=== PATIENT | male | born 1945 | race Caucasian/White ===

== ENCOUNTER 2025-04-29 19:08 | Inpatient (IN) | payer MEDICARE ==
[2025-04-29 19:47] LABS: ALBUMIN 3.28 g/dL (3.40-5.00); BILIRUBIN TOTAL 0.6 mg/dL (0.2-1.0); CARBON DIOXIDE,CO2 24.3 mmol/L (21.0-32.0); CREATININE 2.36 mg/dL (0.51-1.17); PROTEIN TOTAL,TP 7.5 g/dL (6.4-8.2)
[2025-04-29 19:50] LABS: HEMATOCRIT 40.2 % (40.0-52.0); HEMOGLOBIN 12.7 g/dL (13.0-17.0); MEAN CORPUSCULAR HEMOGLOBIN 30.4 pg (27.0-31.0); MEAN CORPUSCULAR HGB CONC 31.6 g/dL (32.0-36.0); MEAN CORPUSCULAR VOLUME 96.2 fL (82.0-92.0); PLATELET COUNT,PLT 347 10^3/uL (150-400); RED BLOOD CELL COUNT 4.18 10^6/uL (4.50-6.00); RED CELL DISTRIBUTION WIDTH 15.2 % (11.5-14.5)
[2025-04-29 19:55] LABS: ANION GAP 14.2 mmol/L (5-15); POTASSIUM,K 6.5 mmol/L (3.5-5.1)
[2025-04-29 19:57] LABS: EST CRCL DRUG DOSING (CG) 24.12 mL/min; WHITE BLOOD CELL COUNT,WBC 36.91 10^3/uL (5.00-10.00)
[2025-04-29 20:11] LABS: LYMPHOCYTES PERCENT MAN 61 % (20-40); MONOCYTES PERCENT MAN 4 % (2-8); SEG NEUTROPHILS PERCENT MAN 35 % (50-70)
[2025-04-29 20:12] LABS: REACTIVE LYMPHOCYTES FEW
[2025-04-29] MEDS: Sodium Chloride 0.9% 1,000 ML IV ONE (21:58)
[2025-04-29] MEDS ORDERED: Sodium Chloride 0.9% 1,000 ML IV SCH (22:00)
[2025-04-29 22:25] LABS: APPEARANCE,URINE CLEAR (CLEAR); BILIRUBIN,URINE SMALL (NEGATIVE); COLOR,URINE YELLOW (YELLOW); GLUCOSE,URINE NEGATIVE (NEGATIVE); KETONES,URINE TRACE mg/dL (NEGATIVE); LEUKOCYTE ESTERASE,URINE NEGATIVE (NEGATIVE); NITRITE,URINE NEGATIVE (NEGATIVE); PH,URINE 5.5 (5.0-9.0); PROTEIN,URINE NEGATIVE (NEGATIVE); UROBILINOGEN,URINE 0.2 E.U./dL (0.2-1.0)
[2025-04-29 22:33] LABS: OCCULT BLOOD,URINE SMALL (NEGATIVE)
[2025-04-29 22:34] LABS: BACTERIA,URINE RARE /HPF (NONE TO FEW); EPITHELIAL CELLS,URINE RARE /LPF; HYALINE CASTS,URINE FEW; WBC,URINE 0-5 /HPF (0-5)
[2025-04-29] MEDS ORDERED: Ondansetron 4 MG/2 ML SDV IV PRN (23:59)
[2025-04-29] MEDS ORDERED: Albuterol/Ipratropium 3.0-0.5 MG/3 ML Neb Soln NEB PRN (23:59)
[2025-04-29] MEDS ORDERED: Docusate Sodium 100 MG Cap PO PRN (23:59)
[2025-04-30] MEDS ORDERED: Glucagon,Human Recombinant 1 MG Vial IM PRN ×3 (00:06→01:16)
[2025-04-30] MEDS ORDERED: 50% Dextrose in Water 50 ML Syringe IVPUSH PRN ×3 (00:06)
[2025-04-30] MEDS ORDERED: Glucose Gel 15 GM in 37.5 GM Tube PO PRN ×2 (00:06→01:16)
[2025-04-30 00:42] LABS: CALCIUM 8.9 mg/dL (8.7-10.3); CREATININE 2.18 mg/dL (0.51-1.17); EST CRCL DRUG DOSING (CG) 26.11 mL/min; POTASSIUM,K 6.6 mmol/L (3.5-5.1)
[2025-04-30 00:48] LABS: ANION GAP 17.4 mmol/L (5-15); CARBON DIOXIDE,CO2 22.2 mmol/L (21.0-32.0)
[2025-04-30] MEDS: Heparin Sodium 5,000 Units/ML Vial SUBCUT SCH (01:47)
[2025-04-30] MEDS: Acetaminophen/oxyCODONE 325-5 MG Tab PO PRN (01:59)
[2025-04-30] MEDS: Sodium Chloride 0.9% 1,000 ML IV SCH (01:59)
[2025-04-30] MEDS: Nystatin Topical Powder 15 GM Bottle TOP SCH (02:00)
[2025-04-30] MEDS: Insulin Regular, Human 100 Units/ML 10 ML Vial IV ONE (02:10)
[2025-04-30] MEDS: 50% Dextrose in Water 50 ML Syringe IVPUSH PRN (02:20)
[2025-04-30 07:34] LABS: HEMATOCRIT 39.8 % (40.0-52.0); HEMOGLOBIN 12.2 g/dL (13.0-17.0); MEAN CORPUSCULAR HEMOGLOBIN 30.1 pg (27.0-31.0); MEAN CORPUSCULAR HGB CONC 30.7 g/dL (32.0-36.0); MEAN CORPUSCULAR VOLUME 98.3 fL (82.0-92.0); MEAN PLATELET VOLUME 11.1 fL (7.4-10.4); PLATELET COUNT,PLT 361 10^3/uL (150-400); RED BLOOD CELL COUNT 4.05 10^6/uL (4.50-6.00); RED CELL DISTRIBUTION WIDTH 15.2 % (11.5-14.5)
[2025-04-30 07:36] LABS: WHITE BLOOD CELL COUNT,WBC 36.49 10^3/uL (5.00-10.00)
[2025-04-30] MEDS: Insulin Lispro 100 Unit/ML 3 ML KwikPen SUBCUT SCH (07:37)
[2025-04-30 07:43] LABS: ANION GAP 14.9 mmol/L (5-15); CALCIUM 8.7 mg/dL (8.7-10.3); CARBON DIOXIDE,CO2 24.6 mmol/L (21.0-32.0); CREATININE 1.86 mg/dL (0.51-1.17); EST CRCL DRUG DOSING (CG) 30.6 mL/min; POTASSIUM,K 6.5 mmol/L (3.5-5.1)
[2025-04-30 07:56] LABS: BAND PERCENT MAN 0 % (4-12); BASOPHILS PERCENT MAN 1 % (0-1); EOSINOPHILS PERCENT MAN 0 % (1-3); LYMPHOCYTES PERCENT MAN 54 % (20-40); MONOCYTES PERCENT MAN 4 % (2-8); SEG NEUTROPHILS PERCENT MAN 41 % (50-70)
[2025-04-30 07:58] LABS: SMUDGE CELLS MODERATE
[2025-04-30 07:59] LABS: GIANT PLATELETS MANY; PLATELET COUNT ESTIMATE ADEQUATE
[2025-04-30] MEDS: amLODIPine 2.5 MG Tab PO SCH (08:47)
[2025-04-30] MEDS ORDERED: Calcium Gluconate 1 GM in Dextrose 5% in Water 100 ML IV ONE (09:56)
[2025-04-30] MEDS: Sodium Chloride 0.9% 500 ML IV ONE ×2 (10:36→11:05)
[2025-04-30] MEDS: Calcium Gluconate 1 GM in Dextrose 5% in Water 100 ML IV ONE (10:36)
[2025-04-30] MEDS: Furosemide 40 MG/4 ML VIAL IVPUSH ONE (10:37)
[2025-04-30] MEDS: Sodium Zirconium Cyclosilicate 10 GM Packet PO SCH (10:37)
[2025-04-30] MEDS: Sodium Bicarbonate 150 MEQ in Dextrose 5% in Water 850 ML IV ONE (10:37)
[2025-04-30] MEDS: traMADol 50 MG Tab PO PRN (10:53)
[2025-04-30] MEDS: Sodium Bicarbonate 150 MEQ in Dextrose 5% in Water 1,000 ML IV ONE (11:05)
[2025-04-30 14:20] LABS: ALBUMIN 2.91 g/dL (3.40-5.00); ANION GAP 11.4 mmol/L (5-15); CALCIUM 8.7 mg/dL (8.7-10.3); CREATININE 1.55 mg/dL (0.51-1.17); EST CRCL DRUG DOSING (CG) 36.72 mL/min; PHOSPHORUS 5.6 mg/dL (2.6-4.7); POTASSIUM,K 4.4 mmol/L (3.5-5.1)
[2025-04-30] MEDS: Gabapentin 100 MG Cap PO SCH (21:41)
[2025-04-30] MEDS: atorvaSTATin 10 MG Tab PO SCH (21:41)
[2025-04-30] MEDS: Temazepam 15 MG Cap PO PRN (21:44)
[2025-05-01 07:04] LABS: HEMATOCRIT 37.7 % (40.0-52.0); HEMOGLOBIN 11.8 g/dL (13.0-17.0); MEAN CORPUSCULAR HEMOGLOBIN 30.4 pg (27.0-31.0); MEAN CORPUSCULAR HGB CONC 31.3 g/dL (32.0-36.0); MEAN CORPUSCULAR VOLUME 97.2 fL (82.0-92.0); MEAN PLATELET VOLUME 11.1 fL (7.4-10.4); PLATELET COUNT,PLT 315 10^3/uL (150-400); RED BLOOD CELL COUNT 3.88 10^6/uL (4.50-6.00); RED CELL DISTRIBUTION WIDTH 15.1 % (11.5-14.5)
[2025-05-01 07:18] LABS: WHITE BLOOD CELL COUNT,WBC 33.25 10^3/uL (5.00-10.00)
[2025-05-01 07:23] LABS: ALBUMIN 2.85 g/dL (3.40-5.00); ANION GAP 12.2 mmol/L (5-15); CALCIUM 8.5 mg/dL (8.7-10.3); CARBON DIOXIDE,CO2 31.5 mmol/L (21.0-32.0); CREATININE 1.33 mg/dL (0.51-1.17); EST CRCL DRUG DOSING (CG) 42.8 mL/min; PHOSPHORUS 5.3 mg/dL (2.6-4.7); POTASSIUM,K 4.7 mmol/L (3.5-5.1)
[2025-05-01 07:31] LABS: LYMPHOCYTES PERCENT MAN 60 % (20-40); SEG NEUTROPHILS PERCENT MAN 40 % (50-70); SLIDE REVIEW YES
[2025-05-01 07:32] LABS: GIANT PLATELETS FEW; PLATELET COUNT ESTIMATE ADEQUATE; SMUDGE CELLS MODERATE
[2025-05-01] MEDS: Furosemide 40 MG Tab PO SCH (10:30)
[2025-05-01] MEDS: methylPREDNISolone 4 MG Tab 21 Tab/Dosepak PO SCH (10:30)
[2025-05-02 07:33] LABS: HEMATOCRIT 38.4 % (40.0-52.0); MEAN CORPUSCULAR HEMOGLOBIN 30.5 pg (27.0-31.0); MEAN CORPUSCULAR HGB CONC 31.3 g/dL (32.0-36.0); MEAN CORPUSCULAR VOLUME 97.7 fL (82.0-92.0); MEAN PLATELET VOLUME 10.9 fL (7.4-10.4); PLATELET COUNT,PLT 357 10^3/uL (150-400); RED BLOOD CELL COUNT 3.93 10^6/uL (4.50-6.00); RED CELL DISTRIBUTION WIDTH 14.9 % (11.5-14.5)
[2025-05-02 08:04] LABS: WHITE BLOOD CELL COUNT,WBC 33.53 10^3/uL (5.00-10.00)
[2025-05-02 08:05] LABS: LYMPHOCYTES PERCENT MAN 53 % (20-40); MONOCYTES PERCENT MAN 1 % (2-8); SEG NEUTROPHILS PERCENT MAN 46 % (50-70); SLIDE REVIEW YES
[2025-05-02 08:06] LABS: PLATELET COUNT ESTIMATE ADEQUATE; SMUDGE CELLS MODERATE
[2025-05-02 08:22] LABS: ALBUMIN 2.82 g/dL (3.40-5.00); ANION GAP 11.9 mmol/L (5-15); CALCIUM 8.9 mg/dL (8.7-10.3); CARBON DIOXIDE,CO2 33.1 mmol/L (21.0-32.0); CREATININE 1.07 mg/dL (0.51-1.17); EST CRCL DRUG DOSING (CG) 53.2 mL/min
[2025-05-02] MEDS: Furosemide 40 MG Tab PO SCH (15:13)
[2025-05-03 07:46] LABS: HEMATOCRIT 37.3 % (40.0-52.0); HEMOGLOBIN 11.6 g/dL (13.0-17.0); MEAN CORPUSCULAR HEMOGLOBIN 30.4 pg (27.0-31.0); MEAN CORPUSCULAR HGB CONC 31.1 g/dL (32.0-36.0); MEAN CORPUSCULAR VOLUME 97.6 fL (82.0-92.0); RED BLOOD CELL COUNT 3.82 10^6/uL (4.50-6.00); RED CELL DISTRIBUTION WIDTH 14.8 % (11.5-14.5)
[2025-05-03 08:02] LABS: ALBUMIN 2.58 g/dL (3.40-5.00); CALCIUM 8.7 mg/dL (8.7-10.3); CARBON DIOXIDE,CO2 33.9 mmol/L (21.0-32.0); CREATININE 0.91 mg/dL (0.51-1.17); EST CRCL DRUG DOSING (CG) 62.55 mL/min; PHOSPHORUS 3.5 mg/dL (2.6-4.7); POTASSIUM,K 3.9 mmol/L (3.5-5.1)
[2025-05-03 08:04] LABS: WHITE BLOOD CELL COUNT,WBC 33.97 10^3/uL (5.00-10.00)
[2025-05-03 08:18] LABS: LYMPHOCYTES PERCENT MAN 65 % (20-40); SEG NEUTROPHILS PERCENT MAN 33 % (50-70); SLIDE REVIEW YES
[2025-05-03 08:19] LABS: MONOCYTES PERCENT MAN 2 % (2-8); PLATELET COUNT ESTIMATE ADEQUATE; SMUDGE CELLS FEW
[2025-05-03 08:20] LABS: PLATELET COUNT,PLT 362 10^3/uL (150-400)
[2025-05-03] MEDS: Metoprolol Succinate 25 MG Tab.ER PO SCH (14:26)
[2025-05-05] MEDS: Furosemide 40 MG/4 ML VIAL IVPUSH ONE (11:17)
[2025-05-05] MEDS: Furosemide 40 MG Tab PO SCH (15:01)
[2025-05-06] MEDS: Acetaminophen 325 MG Tab PO PRN (05:45)
[2025-05-06 07:23] LABS: ALBUMIN 2.69 g/dL (3.40-5.00); ANION GAP 7.3 mmol/L (5-15); CALCIUM 8.8 mg/dL (8.7-10.3); CARBON DIOXIDE,CO2 37.9 mmol/L (21.0-32.0); CREATININE 0.87 mg/dL (0.51-1.17); EST CRCL DRUG DOSING (CG) 65.42 mL/min; POTASSIUM,K 4.2 mmol/L (3.5-5.1)
[2025-05-06] MEDS: Furosemide 40 MG/4 ML VIAL IVPUSH ONE (11:18)
[2025-05-06] MEDS: Furosemide 40 MG Tab PO SCH (15:06)
== END 2025-05-07 13:15 | DRG 683 ==
LOC: KA.ED 19:08 → KA.MS 22:30
PROVIDERS: ADMIT Physician Assistant; ATTEND Family Medicine
PROC: 0T9B70Z Drainage of Bladder with Drainage Device, Via Natural or Artificial Opening (ICD-10-PCS; principal; 2025-04-29)
DX: N17.9 Acute kidney failure, unspecified (principal); F03.93 Unspecified dementia, unspecified severity, with mood disturbance; F03.94 Unspecified dementia, unspecified severity, with anxiety; Z68.44 Body mass index [BMI] 60.0-69.9, adult; I47.10 Supraventricular tachycardia, unspecified; E87.5 Hyperkalemia; M17.0 Bilateral primary osteoarthritis of knee; Z66 Do not resuscitate; E11.9 Type 2 diabetes mellitus without complications; I11.0 Hypertensive heart disease with heart failure; I50.9 Heart failure, unspecified; G47.33 Obstructive sleep apnea (adult) (pediatric); Z88.8 Allergy status to other drugs, medicaments and biological substances; E86.1 Hypovolemia; I87.2 Venous insufficiency (chronic) (peripheral); K21.9 Gastro-esophageal reflux disease without esophagitis; Z96.659 Presence of unspecified artificial knee joint; E11.40 Type 2 diabetes mellitus with diabetic neuropathy, unspecified; D72.829 Elevated white blood cell count, unspecified; E78.2 Mixed hyperlipidemia; E66.813 Obesity, class 3; R53.81 Other malaise; Z87.891 Personal history of nicotine dependence; Z88.2 Allergy status to sulfonamides; Z79.899 Other long term (current) drug therapy; Z79.84 Long term (current) use of oral hypoglycemic drugs
CPT/HCPCS: 36415; 51702; 71046; 80048; 80053; 80069; 81001; 82947; 83735; 83880; 85025; 93005; 93010; 96360; 97110-GP; 97116-GP; 97161-GP; 97530-GO; 97535-GO; 99284; 99285-25; A9270-GY; J0612; J1644; J1938; J3490; J7030; J7040; J7060; J7070; J7509; Q3014

== ENCOUNTER 2025-05-08 02:14 | Emergency (ER) | payer MEDICARE ==
[2025-05-08] MEDS ORDERED: Sodium Chloride 0.9% 10 ML Syringe FLUSH PRN (02:23)
[2025-05-08 02:35] LABS: HEMATOCRIT 36.7 % (40.0-52.0); HEMOGLOBIN 11.7 g/dL (13.0-17.0); MEAN CORPUSCULAR HEMOGLOBIN 30.2 pg (27.0-31.0); MEAN CORPUSCULAR HGB CONC 31.9 g/dL (32.0-36.0); MEAN CORPUSCULAR VOLUME 94.6 fL (82.0-92.0); MEAN PLATELET VOLUME 10.4 fL (7.4-10.4); PLATELET COUNT,PLT 358 10^3/uL (150-400); RED BLOOD CELL COUNT 3.88 10^6/uL (4.50-6.00); RED CELL DISTRIBUTION WIDTH 14.6 % (11.5-14.5)
[2025-05-08 02:42] LABS: WHITE BLOOD CELL COUNT,WBC 35.35 10^3/uL (5.00-10.00)
[2025-05-08 02:43] LABS: LYMPHOCYTES PERCENT MAN 60 % (20-40); SEG NEUTROPHILS PERCENT MAN 32 % (50-70); SLIDE REVIEW YES
[2025-05-08 02:44] LABS: BASOPHILS PERCENT MAN 2 % (0-1); EOSINOPHILS PERCENT MAN 2 % (1-3); GIANT PLATELETS RARE; MONOCYTES PERCENT MAN 4 % (2-8); PLATELET COUNT ESTIMATE ADEQUATE; SMUDGE CELLS FEW
[2025-05-08 02:47] LABS: ALBUMIN 2.57 g/dL (3.40-5.00); ANION GAP 9.9 mmol/L (5-15); BILIRUBIN TOTAL 0.9 mg/dL (0.2-1.0); CARBON DIOXIDE,CO2 33.8 mmol/L (21.0-32.0); CREATININE 0.94 mg/dL (0.51-1.17); EST CRCL DRUG DOSING (CG) 60.55 mL/min; POTASSIUM,K 2.7 mmol/L (3.5-5.1); PROTEIN TOTAL,TP 6.2 g/dL (6.4-8.2)
[2025-05-08] MEDS: LORazepam 2 MG/ML SDV IVPUSH ONE (02:47)
[2025-05-08 02:48] LABS: APPEARANCE,URINE CLEAR (CLEAR); BILIRUBIN,URINE NEGATIVE (NEGATIVE); COLOR,URINE YELLOW (YELLOW); GLUCOSE,URINE NEGATIVE (NEGATIVE); KETONES,URINE NEGATIVE (NEGATIVE); LEUKOCYTE ESTERASE,URINE NEGATIVE (NEGATIVE); NITRITE,URINE NEGATIVE (NEGATIVE); OCCULT BLOOD,URINE TRACE-INTACT (NEGATIVE); PH,URINE 5.5 (5.0-9.0); PROTEIN,URINE NEGATIVE (NEGATIVE); UROBILINOGEN,URINE 0.2 E.U./dL (0.2-1.0)
[2025-05-08] MEDS: Ketorolac 30 MG/ML SDV IVPUSH ONE (02:53)
[2025-05-08 02:55] LABS: BACTERIA,URINE RARE /HPF (NONE TO FEW); EPITHELIAL CELLS,URINE RARE /LPF; WBC,URINE 0-5 /HPF (0-5)
[2025-05-08] MEDS: Potassium Chloride 20 MEQ Tab.ER PO ONE (03:02)
[2025-05-08 03:22] VITALS: BP 112/61; PULSE 72
== END 2025-05-08 03:35 ==
LOC: KA.ED 02:14
DX: M54.42 Lumbago with sciatica, left side (principal); G89.29 Other chronic pain; I11.0 Hypertensive heart disease with heart failure; I50.9 Heart failure, unspecified; E11.9 Type 2 diabetes mellitus without complications; E66.9 Obesity, unspecified; E78.00 Pure hypercholesterolemia, unspecified; Z88.8 Allergy status to other drugs, medicaments and biological substances; Z79.899 Other long term (current) drug therapy; Z79.84 Long term (current) use of oral hypoglycemic drugs; Z68.44 Body mass index [BMI] 60.0-69.9, adult
CPT/HCPCS: 36415; 80053; 81001; 85025; 96374; 96375; 99283-25; 99284; A9270-GY; J1885; J2060